=== PATIENT | female | born 1930 | race Caucasian/White ===

== ENCOUNTER 2016-10-16 23:03 | Emergency (ER) | payer OTHER ==
[~2016-10-16 23:03] MED LIST: CEPHALEXIN500 MG PO; FOSAMAX 70MG70 MG PO; LEVOTHYROXINE0.1 MG PO; LEVOTHYROXINE112 MCG PO; LISINOPRIL10 MG PO; NAMENDA XR28 M1 PO; NAMENDA10 MG PO; PAROXETINE HYDR10 MG PO; VITAMIN B-121000 MCG PO; VITAMIN D1000 IU PO
[2016-10-16] MEDS ORDERED: MELATONIN3 M4 PO (23:21)
[2016-10-16] MEDS ORDERED: TYLENOL325 M1 PO (23:22)
--- NOTE | 2016-10-16 23:34 | ED GENERAL ADULT ---
History of Present Illness General Chief Complaint: Fall Stated Complaint: FALL Source: patient Exam Limitations: confusion, dementia Vital Signs & Intake/Output Vital Signs & Intake/Output Vital Signs Date Time Temp Pulse Resp B/P B/P Pulse O2 O2 Flow FiO2 Mean Ox Delivery Rate 10/17 0105 97.4 75 20 147/78 98 Room Air 10/16 2318 97.7 88 22 163/70 96 Allergies Coded Allergies: Sulfa (Sulfonamide Antibiotics) (Intermediate, RASH 09/29/15) MDX - PCN (penicillin) (PCN (penicillin)) ( says patient is not allergic 03/23/15) Reconcile Medications Acetaminophen (Tylenol) 325 MG TABLET 1 TAB PO Q6H PRN PAIN (Reported) Levothyroxine Sodium 112 MCG TABLET 1 TAB PO DAILY AC THYROID (Reported) Melatonin 3 MG TABLET 1 TAB PO QPM SLEEP (Reported) Memantine HCl (Namenda XR) 28 MG CAP.SPR.24 1 CAP PO DAILY DEMENTIA (Reported ) Triage Note: PER ECF AND EMS UNWITNESSED FALL PT HAS HX OF DEMENTIA BUT CO OF RT SHOULDER PAIN. PT UNABLE TO VERBALIZE HX OF FALL Triage Nurses Notes Reviewed? yes Onset: Abrupt Duration: hour(s): Timing: single episode today HPI: 10/16/16 85-year-old female presents to the emergency department by ambulance for falling at the convalescent home. She has a history of dementia and the family states that she rolled out of bed. Apparently at the convalescent home they were concerned because she may have hit her head. There was a question that she might have a shoulder injury as well. The onset of the symptoms was abrupt, the duration was just this evening, the severity was significant; as her symptoms required her to come to the emergency department for care. On physical examination emergency department she is pleasantly confused. I do not appreciate any soft tissue swelling or neck limitations of motion or tenderness. She has no tenderness to both shoulders and her pelvis is stable Past History Travel History Traveled to [place] past 21 day No Medical History Any Pertinent Medical History? 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 No Review of Systems Review of Systems Constitutional: Denies: fever. EENTM: Reports: no symptoms. Respiratory: Denies: short of breath. Cardiovascular: Denies: chest pain. GI: Denies: abdominal pain. Genitourinary: Reports: no symptoms. Musculoskeletal: Reports: no symptoms. Skin: Reports: no symptoms. Neurological/Psychological: Reports: confusion. Hematologic/Endocrine: Denies: bruising, bleeding. Immunologic/Allergic: Reports: no symptoms. Physical Exam Physical Exam General Appearance: alert, awake, anxious, mild distress Head: atraumatic, normal appearance Eyes: Bilateral: normal appearance, PERRL, EOMI. Ears, Nose, Throat: normal pharynx, normal ENT inspection Neck: normal inspection, supple, full range of motion Respiratory: normal breath sounds, chest non-tender, no respiratory distress Cardiovascular: regular rate/rhythm Peripheral Pulses: 4+ radial (R), 4+ radial (L) Gastrointestinal: soft, non-tender Back: decreased range of motion Extremities: pelvis stable Neurologic/Psych: awake, alert, confused Skin: intact, normal color, warm/dry Core Measures ACS in differential dx? No CVA/TIA Diagnosis: No Severe Sepsis Present: No Septic Shock Present: No Progress Differential Diagnoses I considered the following diagnoses in my evaluation of the patient: [Fracture, intracranial bleed, dislocation] Plan of Care: PATIENT: RICKY CARSON PRESENT AGE: 85 PATIENT ACCOUNT NO: [id number] : 32 LOCATION: [facility] ORDERING PHYSICIAN: RIGOBERTO DE LA VEGA DO SERVICE DATE: 10/16/163931 EXAM TYPE: CAT - CT CERV SPINE WO IV CONTRAST; CT HEAD WO IV CONTRAST EXAMINATION: NONCONTRAST HEAD CT NONCONTRAST CERVICAL SPINE CT INDICATION INFORMATION: Fall. Rule out bleed. Evaluate for fracture. COMPARISON: 09/29/2015 TECHNIQUE: Separate noncontrast CT examinations of the head and cervical spine were performed. Coronal and sagittal images were created for each examination at the technologist workstation. FINDINGS: Head: There is no evidence of acute intracranial hemorrhage or territorial infarction. No abnormal mass effect or midline shift is seen. Diaz to white matter differentiation is well preserved. No extra-axial fluid collections are identified. No hydrocephalus. Proportional prominence of the ventricles and sulcal spaces is consistent with moderate volume loss. Patchy periventricular and deep white matter hypoattenuation is consistent with mild small vessel ischemic changes. The osseous structures and soft tissues are normal. Focal hyperattenuation along the inner table of the left frontoparietal region measuring 0.6 cm is unchanged, likely representing a small meningioma. The mastoid air cells and visualized portions of the paranasal sinuses are well aerated. Cervical spine: There is anatomic alignment of the vertebral bodies and posterior elements. The atlantoaxial and atlantooccipital articulations are intact. Vertebral body heights are maintained. There is multilevel intervertebral disc space narrowing with endplate osteophyte formation and facet arthropathy. No evidence of acute fracture. No prevertebral soft tissue swelling. Multiple pulmonary nodules are seen at the lung apices. The largest measures 0.6 cm as seen on series 9 image 372. Mild centrilobular emphysema. Prominent pleural thickening. The thyroid gland is not visualized, possibly atrophic or absent. IMPRESSION: 1. No acute intracranial findings. 2. No acute fracture or malalignment of the cervical spine. Moderate degenerative changes. 3. Numerous biapical pulmonary nodules appear fairly similar to the prior chest CT from 03/20/2015. DICTATED BY: KRISTEN BREWER MD DATE/TIME DICTATED:10/17/1622 WHIZZER:ARIC DATE/TIME TRANSCRIBED:10/17/1622 CONFIDENTIAL, DO NOT COPY WITHOUT APPROPRIATE AUTHORIZATION. <Electronically signed in Other Vendor System> SIGNED BY: KRISTEN BREWER MD 10/17 0034 Initial ED EKG: none Departure Departure Disposition: [facility] (ACUTE) Condition: Stable Clinical Impression Primary Impression: Fall (on) (from) other stairs and steps, initial encounter Secondary Impressions: Contusion Referrals: Laura ODONNELL MD (PCP/Family) Departure Forms: Customer Survey General Discharge Information Comments Chest x-ray shows no acute findings. Pelvis x-rays negative. CT scan of the head and cervical spine are essentially unremarkable The patient was discharged back to the assisted care facility Critical Care Note Critical Care Note Critical Care Time: non-applicable
--- NOTE | 2016-10-17 00:27 | RADIOLOGY REPORT ---
EXAMINATION:\H\ \N\XR CHEST CLINICAL INFORMATION: Fall. COMPARISON: 09/29/2015 TECHNIQUE: Frontal view of the chest was obtained. FINDINGS: The lungs are well expanded. No consolidation, edema, or effusion. No pneumothorax. The cardiomediastinal silhouette is within normal limits. No acute osseous abnormality. IMPRESSION: No acute pulmonary findings. No displaced fractures.
--- NOTE | 2016-10-17 00:34 | CT SCAN REPORT ---
EXAMINATION: NONCONTRAST HEAD CT NONCONTRAST CERVICAL SPINE CT INDICATION INFORMATION: Fall. Rule out bleed. Evaluate for fracture. COMPARISON: 09/29/2015 TECHNIQUE: Separate noncontrast CT examinations of the head and cervical spine were performed. Coronal and sagittal images were created for each examination at the technologist workstation. FINDINGS: Head: There is no evidence of acute intracranial hemorrhage or territorial infarction. No abnormal mass effect or midline shift is seen. Diaz to white matter differentiation is well preserved. No extra-axial fluid collections are identified. No hydrocephalus. Proportional prominence of the ventricles and sulcal spaces is consistent with moderate volume loss. Patchy periventricular and deep white matter hypoattenuation is consistent with mild small vessel ischemic changes. The osseous structures and soft tissues are normal. Focal hyperattenuation along the inner table of the left frontoparietal region measuring 0.6 cm is unchanged, likely representing a small meningioma. The mastoid air cells and visualized portions of the paranasal sinuses are well aerated. Cervical spine: There is anatomic alignment of the vertebral bodies and posterior elements. The atlantoaxial and atlantooccipital articulations are intact. Vertebral body heights are maintained. There is multilevel intervertebral disc space narrowing with endplate osteophyte formation and facet arthropathy. No evidence of acute fracture. No prevertebral soft tissue swelling. Multiple pulmonary nodules are seen at the lung apices. The largest measures 0.6 cm as seen on series 9 image 372. Mild centrilobular emphysema. Prominent pleural thickening. The thyroid gland is not visualized, possibly atrophic or absent. IMPRESSION: 1. No acute intracranial findings. 2. No acute fracture or malalignment of the cervical spine. Moderate degenerative changes. 3. Numerous biapical pulmonary nodules appear fairly similar to the prior chest CT from 03/20/2015.
--- NOTE | 2016-10-17 00:35 | RADIOLOGY REPORT ---
EXAMINATION: XR PELVIS CLINICAL INFORMATION: Fall. COMPARISON: None TECHNIQUE: AP view of the pelvis. FINDINGS: The bones are osteopenic. No evidence of acute fracture or dislocation. The femoral heads are well-seated within their respective acetabula. The pelvic rim is intact. Degenerative changes of the lower lumbar spine. The bowel gas pattern is unremarkable. IMPRESSION: No evidence of fracture or dislocation.
[2016-10-17 01:05] VITALS: BP 147/78
== END 2016-10-17 02:10 | disposition short-term general hospital (02) ==
LOC: ERH 23:03
DX: S40.011A Contusion of right shoulder, initial encounter (principal); W19.XXXA Unspecified fall, initial encounter; Y92.122 Bedroom in nursing home as the place of occurrence of the external cause
CPT/HCPCS: 72170

== ENCOUNTER 2016-10-19 13:27 | Emergency (ER) | payer OTHER ==
[~2016-10-19] VITALS: Ht 162.6 cm; Wt 54.4 kg
[~2016-10-19 13:27] MED LIST changes: +MELATONIN3 M4 PO; +TYLENOL325 M1 PO
--- NOTE | 2016-10-19 13:35 | ED MVC/FALL/TRAUMA COMPLAINT ---
History of Present Illness General Chief Complaint: Fall Stated Complaint: BIBA,FALL Source: patient, family, EMS Exam Limitations: dementia Vital Signs & Intake/Output Vital Signs & Intake/Output Vital Signs Date Time Temp Pulse Resp B/P B/P Pulse O2 O2 Flow FiO2 Mean Ox Delivery Rate 10/19 1442 97.6 68 17 128/68 98 Room Air 10/19 1337 98 Room Air 10/19 1331 76 18 133/72 97 Room Air Allergies Coded Allergies: Sulfa (Sulfonamide Antibiotics) (Intermediate, RASH 09/29/15) MDX - PCN (penicillin) (PCN (penicillin)) ( says patient is not allergic 03/23/15) Reconcile Medications Acetaminophen (Tylenol) 325 MG TABLET 1 TAB PO Q6H PRN PAIN (Reported) Levothyroxine Sodium 112 MCG TABLET 1 TAB PO DAILY AC THYROID (Reported) Melatonin 3 MG TABLET 1 TAB PO QPM SLEEP (Reported) Memantine HCl (Namenda XR) 28 MG CAP.SPR.24 1 CAP PO DAILY DEMENTIA (Reported ) Triage Nurses Notes Reviewed? yes Onset: Abrupt Duration: hour(s): (1), better Timing: single episode today Severity: mild Severity Numbers: 1 Injuries/Fall Location: head Method of Injury: fall Loss of Consciousness: no loss of consciousness No Modifying Factors: none Associated Symptoms: DENIES HPI: 85-year-old female history of dementia hypothyroid presents brought in by ambulance from assisted living after she had an unwitnessed fall. Patient was seen here 3 days ago after she had a fall when she fell out of bed. On arrival patient offers no complaints however is confused at baseline. No change in mental status per her . She has a small bump to the right side of her head. It is not clear however if the bump was sustained from the fall 3 days ago which brought her to the emergency room then. She is without any complaints and no vomiting. History is limited secondary to patient dementiA however her reports that she has a history of falls (SARI SALAS) Past History Travel History Traveled to [place] past 21 day No Medical History Any Pertinent Medical History? 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 No (SARI SALAS) Review of Systems Review of Systems Constitutional: Reports: see HPI. All Other Systems: Reviewed and Negative Comments Review of systems: Limited secondary to patient dementia obtained from the patient's Constitutional, no chills no fever, no malaise HEENT:no sore throat no congestion Cardiovascular: No chest pain , no palpitation Skin: no rashes, no change in skin Respiratory: No dyspnea no cough no sputum GI: No nausea no vomiting, no diarrhea : No dysuria No hematuria, no frequency, no discharge Muscle skeletal: No joint pain, no joint swelling, no back pain, no neck pain, Neurologic: no headache Psych: No stress no depression,. Heme/endocrine: No bruising Immunology: No lymphadenopathy (SARI SALAS) Physical Exam Physical Exam General Appearance: well developed/nourished, alert, awake Comments: Elderly cachectic female in no apparent distress HEENT: Normal EENT exam; PERRL, EOMI, no nystagmus. Small hematoma noted to the right temporal no abrasions no bleeding no laceration scalp moist mucous membranes. Neck: Supple, no lymphadenopathy, normal range of motion without pain or tenderness Back: Nontender, no CVA tenderness. Full range of motion Cardiovascular: Regular rate and rhythms no murmurs rubs Respiratory: Chest nontender.There were no bony deformities, no asymmetry. No respiratory distress. Patient speaking in full complete sentences. Breath sounds clear to auscultation bilaterally: NO W/R/R Abdomen: Soft, nontender nondistended, no appreciable organomegaly. Normal bowel sounds. No rebound/guarding Extremity: No edema, full range of motion of extremities, normal and equal pulses bilaterally, 5 out of 5 strength noted to bilateral upper and lower extremities Neuro: Alert oriented x0, motor sensory normal, cranial nerves II through XII grossly intact. There were no obvious focal neurologic abnormalities. Skin: No appreciable rash on exposed skin, skin is warm and dry. Psych: Mood and affect is normal, memory and judgment is normal. Core Measures ACS in differential dx? No Severe Sepsis Present: No Septic Shock Present: No (SARI SALAS) Progress Differential Diagnosis: C/T/L spine injury, ext injury, ICH, pelvis injury, spinal cord injury Plan of Care: Orders Procedure Date/time Status CT HEAD WO IV CONTRAST 10/19 1341 Active CAT scan ordered old records reviewed patient offers no complaints at this time moving all extremities well no bony tenderness no abdominal tenderness she is at her current baseline mental status per her Case discussed with Dr. URIARTE 0699 I discussed with the patient at length all of their results. I had an extensive conversation regarding need for close follow up with their primary care physician this week as well as return precautions. I answered all of their questions, they feel comfortable with the plan and follow-up care. (WALLY GRANDA,SARI) Diagnostic Imaging: Viewed by Me: CT Scan. Discussed w/RAD: CT Scan. Radiology Impression: PATIENT: RICKY CARSON PRESENT AGE: 85 PATIENT ACCOUNT NO: [id number] : 32 LOCATION: [facility] ORDERING PHYSICIAN: SARI GRANDA SERVICE DATE: 10/19/16-1341 EXAM TYPE: CAT - CT HEAD WO IV CONTRAST EXAMINATION: CT HEAD WITHOUT CONTRAST CLINICAL INFORMATION: Fall, Dementia COMPARISON: 10/16/16, 09/28/16, 11/18/[address] scans TECHNIQUE: Contiguous axial imaging was performed from the skull base to vertex without intravenous administration of contrast. DLP: 255.22 mGy-cm FINDINGS: There is no evidence of acute intracranial hemorrhage or territorial infarction. No abnormal mass effect or midline shift is seen. Diaz to white matter differentiation is well preserved. No extra-axial fluid collections are identified. There is moderate loss of brain volume with associated dilatation of the sulci and ventricles, unchanged since prior your CT scans. There are scattered bilateral periventricular white matter hypodensities, can represent chronic ischemic changes of the small vessel disease. A 7 mm extra-axial calcific density adjacent to the left frontoparietal region is unchanged and could represent a small meningioma. There is no acute skull fracture. Mild right frontoparietal scalp swelling can be trauma related. The mastoid air cells and visualized portions of the paranasal sinuses are well aerated. IMPRESSION: Stable CT scan of head without evidence of acute intracranial hemorrhage or acute skull fracture. A small area of right frontoparietal scalp swelling is present which can be trauma related. DICTATED BY: ANGEL SAMUEL MD DATE/TIME DICTATED:10/19/161412 ADOBE DEVELOPER:ARIC DATE/TIME TRANSCRIBED:1412 CONFIDENTIAL, DO NOT COPY WITHOUT APPROPRIATE AUTHORIZATION. < Electronically signed in Other Vendor System> SIGNED BY: ANGEL SAMUEL MD 10/19/16 1440 (SARI SALAS) Departure Departure Time of Disposition: 144 Disposition: HOME OR SELF CARE Condition: Stable Clinical Impression Primary Impression: Fall Referrals: Laura ODONNELL MD (PCP/Family) Additional Instructions: follow up with her pmd this week, return with any concerns Departure Forms: Customer Survey General Discharge Information (SARI SALAS) PA/INDIRECT FIRE INFANTRYMAN Co-Sign Statement Statement: ED Attending supervision documentation- x I saw and evaluated the patient. I have also reviewed all the pertinent lab results and diagnostic results. I agree with the findings and the plan of care as documented in the PA's/INDIRECT FIRE INFANTRYMAN's documentation. [] I have reviewed the ED Record and agree with the PA's/INDIRECT FIRE INFANTRYMAN's documentation. [] Additions or exceptions (if any) to the PAs/INDIRECT FIRE INFANTRYMAN's note and plan are summarized below: [] (CHAPITO IRVING,AKASH)
--- NOTE | 2016-10-19 14:40 | CT SCAN REPORT ---
EXAMINATION: CT HEAD WITHOUT CONTRAST CLINICAL INFORMATION: Fall, Dementia COMPARISON: 10/16/16, 09/28/16, 11/18/[address] scans TECHNIQUE: Contiguous axial imaging was performed from the skull base to vertex without intravenous administration of contrast. DLP: 255.22 mGy-cm FINDINGS: There is no evidence of acute intracranial hemorrhage or territorial infarction. No abnormal mass effect or midline shift is seen. Diaz to white matter differentiation is well preserved. No extra-axial fluid collections are identified. There is moderate loss of brain volume with associated dilatation of the sulci and ventricles, unchanged since prior your CT scans. There are scattered bilateral periventricular white matter hypodensities, can represent chronic ischemic changes of the small vessel disease. A 7 mm extra-axial calcific density adjacent to the left frontoparietal region is unchanged and could represent a small meningioma. There is no acute skull fracture. Mild right frontoparietal scalp swelling can be trauma related. The mastoid air cells and visualized portions of the paranasal sinuses are well aerated. IMPRESSION: Stable CT scan of head without evidence of acute intracranial hemorrhage or acute skull fracture. A small area of right frontoparietal scalp swelling is present which can be trauma related.
[2016-10-19 14:42] VITALS: BP 128/68
== END 2016-10-19 15:29 ==
LOC: ERH 13:27
DX: S09.90XA Unspecified injury of head, initial encounter (principal); W06.XXXA Fall from bed, initial encounter; Y93.9 Activity, unspecified; Y92.129 Unspecified place in nursing home as the place of occurrence of the external cause